=== PATIENT | female | born 1955 | race Caucasian/White ===

== ENCOUNTER 2021-07-16 09:08 | Day surgery (SDC) | payer MEDICARE, BC ==
[~2021-07-16] VITALS: Ht 162.6 cm; Wt 93.2 kg
[2021-07-16 10:07] VITALS: BP 118/69; PULSE 99; TEMP 97.4
[2021-07-16] MEDS ORDERED: ZOFRAN8 MG PO (10:22)
[2021-07-16] MEDS ORDERED: ATIVAN 0.50.5 MG/TAB PO (10:59)
[2021-07-16] MEDS ORDERED: ULTRAM 50MG TAB50 MG PO (11:00)
[2021-07-16] MEDS ORDERED: LIDOCAINE HC20 MG/M2 PO (11:00)
[2021-07-16] MEDS ORDERED: ZOLOFT 50MG50 MG PO (11:00)
[2021-07-16] MEDS ORDERED: SYNTHROID 0.0.025 MG PO (11:00)
[2021-07-16] MEDS ORDERED: ROXICODONE 55 MG/TAB PO (11:01)
[2021-07-16 11:29] VITALS: BP 106/39; PULSE 79; TEMP 97
--- NOTE | 2021-07-16 11:29 | NUR ---
The patient arrived back to [facility] via cart at this time. The patient appears drowsy but arouses easily to her name. Post operative vital signs were started at this time. The patient's dressing to her left neck and upper chest appear clean, dry and intact. Call light is within reach. Will continue to monitor the patient.
[2021-07-16 11:44] VITALS: BP 112/49; PULSE 77
--- NOTE | 2021-07-16 11:44 | NUR ---
The patient appears more alert at at this time and was given some sprite and a warm blanket. The patient's daughter is at her bedside at this time. Vital signs appear stable. Will continue to monitor the patient.
[2021-07-16 11:59] VITALS: BP 110/44; PULSE 77
--- NOTE | 2021-07-16 12:00 | NUR ---
The patient appeared to toleate the sprite well. The patient denies any pain or nausea at this time. The patient's daughter remains at her bedside. Will continue to monitor the patient.
--- NOTE | 2021-07-16 12:15 | NUR ---
The patient and her daughter voice a desire to be discharged home. The patient's IV to left hand was removoed and a pressure dressing was applied the site. The patient's daughter is going to assist her to get dressed.
--- NOTE | 2021-07-16 12:25 | NUR ---
Discharge instructions were reviewed with the patient and her daughter at this time. They both verbalized understanding and have no questions for the nurse at this time. The patient is dressed and ready to be escorted out.
--- NOTE | 2021-07-16 12:35 | NUR ---
The patient was escorted out via wheelchair to a private vehicle by VIKAS Gutierrez. The patient's belongings and discharge paperwork were sent with her. The patient's daughter is present to drive her home.
== END 2021-07-16 12:35 | disposition home or self-care (01) ==
LOC: SDCO 09:08
DX: C34.32 Malignant neoplasm of lower lobe, left bronchus or lung (principal); C78.7 Secondary malignant neoplasm of liver and intrahepatic bile duct; K21.9 Gastro-esophageal reflux disease without esophagitis; Z79.899 Other long term (current) drug therapy; Z79.891 Long term (current) use of opiate analgesic; Z85.3 Personal history of malignant neoplasm of breast; Z87.891 Personal history of nicotine dependence; Z80.0 Family history of malignant neoplasm of digestive organs
CPT/HCPCS: C1788; J0690; J1100; J1644; J2405; J2704; J3010; J7120

== ENCOUNTER 2021-07-19 11:35 | Inpatient (IN) | payer MEDICARE, BC ==
[~2021-07-19] VITALS: Ht 162.6 cm; Wt 98.0 kg
[~2021-07-19 11:35] MED LIST: ATIVAN 0.50.5 MG/TAB PO; LIDOCAINE HC20 MG/M2 PO; ROXICODONE 55 MG/TAB PO; SYNTHROID 0.0.025 MG PO; ULTRAM 50MG TAB50 MG PO; ZOFRAN8 MG PO; ZOLOFT 50MG50 MG PO
[2021-07-19 13:46] LABS: HEMATOCRIT 49.8 % (37.0-47.0); HEMOGLOBIN 16.5 g/dl (12.5-16.0); MEAN CELL VOLUME 89 fl (80.0-100.0); MEAN CORPUSCULAR HEMOGLOBIN 29 pg (27-31); MEAN CORPUSCULAR HGB CONC 33 g/dl (33.0-37.0); RED BLOOD COUNT 5.61 M/mm3 (4.10-5.30); REDCELL DISTRIBUTION WIDTH-CV 22.2 % (11.5-14.5)
[2021-07-19 13:48] LABS: PLATELET COUNT 43 K/mm3 (130-400)
[2021-07-19 14:15] LABS: ALBUMIN 1.9 gm/dL (3.4-4.8); BILIRUBIN,TOTAL 18.1 mg/dL (0.2-1.2); C-REACTIVE PROTEIN 6.39 mg/dL (0.00-0.50); CALCIUM 8.7 mg/dL (8.4-10.2); CREATININE, serum 1.36 mg/dL (0.57-1.11); POTASSIUM 5.7 mmol/L (3.5-4.5); TOTAL PROTEIN 6.8 gm/dL (6.2-8.1)
[2021-07-19 14:22] LABS: TROPONIN-I 0.012 ng/mL (0.00-0.033)
[2021-07-19 14:38] LABS: ANISOCYTOSIS 3+; BAND 3 % (0-10); LYMPHOCYTE 5 % (20.0-51.0); NEUTROPHILS 89 % (42.0-75.2); PLATELET ESTIMATE DECREASED (NORMAL)
[2021-07-19 15:00] LABS: COLLECTION METHOD CLEAN CATCH
[2021-07-19 15:14] LABS: MUCOUS Present (NOT PRESENT); PH 6 (5-8); SQUAMOUS EPITHELIAL None Seen /hpf (0-10); URINE APPEARANCE Hazy (CLEAR/HAZY); URINE BACTERIA Rare /hpf (NONE SEEN); URINE BILIRUBIN Positive (NEGATIVE); URINE BLOOD Negative (NEGATIVE); URINE COLOR Amber (YELLOW); URINE GLUCOSE Negative (NEGATIVE); URINE KETONE Negative (NEGATIVE); URINE LEUKOCYTE ESTERASE Negative (NEGATIVE); URINE NITRATE Negative (NEGATIVE); URINE PROTEIN(semi-quant) Negative (NEGATIVE); URINE RBC 0-2 /hpf (0-2); URINE UROBILINOGEN >=4.0 (NEGATIVE)
[2021-07-19] MEDS ORDERED: REQUIP 1MG T1 MG/TAB PO (17:57)
[2021-07-19] MEDS ORDERED: PRILOTC PO (17:58)
[2021-07-19 18:15] VITALS: BP 126/67; PULSE 103
[2021-07-19 19:19] VITALS: BP 103/81; PULSE 108; TEMP 97.4
--- NOTE | 2021-07-19 20:30 | NUR ---
PT IN BED. DAUGHTER LEFT FOR THE NIGHT. PT REPORTS BURNING AT LEFT UPPER ARM IV SITE, CURRENTLY NO IVF INFUSING PER SITE. HAS GOOD BLOOD RETURN AND FLUSHES WELL. CONNECTED TO IVF AND ANTIBIOTIC, INFUSING WITHOUT PROBLEM. MEDICATED WITH HS MEDS INCLUDING 9MG OF MELATONIN. HAS A LEFT CHEST PORT THAT ISN'T ACCESSED. BRUISING OF LEFT CHEST AND ARMS NOTED. MILD EDEMA TO LOWER LEGS. SKIN JAUNDICE. RT ARM RESTRICTED. DOING B/P'S ON LEFT LEG.
[2021-07-19 21:41] LABS: CALCIUM 8.2 mg/dL (8.4-10.2); CREATININE, serum 1.55 mg/dL (0.57-1.11); POTASSIUM 4.7 mmol/L (3.5-4.5)
--- NOTE | 2021-07-19 22:34 | NUR ---
PT SITTING AT EDGE OF BED, REPORTS NOT SLEEPING AND FEELING ANXIOUS. MEDICATED WITH ATIVAN 0.5MG PO AT THIS TIME.
[2021-07-20 00:03] VITALS: BP 109/63; PULSE 102; TEMP 97.5
[2021-07-20 03:09] VITALS: BP 140/86; PULSE 101; TEMP 97.9
--- NOTE | 2021-07-20 07:00 | NUR ---
Report received from VIKAS Caraballo. Patient is sleeping in bed. Call light and bedside table are within reach. Will continue to montior patient throughout shift.
[2021-07-20 07:06] VITALS: BP 116/48; PULSE 97; TEMP 98.2
[2021-07-20 07:21] LABS: HEMATOCRIT 48.2 % (37.0-47.0); HEMOGLOBIN 16.4 g/dl (12.5-16.0); MEAN CELL VOLUME 88 fl (80.0-100.0); MEAN CORPUSCULAR HEMOGLOBIN 30 pg (27-31); MEAN CORPUSCULAR HGB CONC 34 g/dl (33.0-37.0); MEAN PLATELET VOLUME 12.2 fl (7.4-10.4); PLATELET COUNT 56 K/mm3 (130-400); REDCELL DISTRIBUTION WIDTH-CV 21.9 % (11.5-14.5)
[2021-07-20 07:27] LABS: CALCIUM 8.5 mg/dL (8.4-10.2); CREATININE, serum 1.47 mg/dL (0.57-1.11); POTASSIUM 4.5 mmol/L (3.5-4.5)
[2021-07-20 08:24] LABS: BAND 18 % (0-10); EOSINOPHIL 1 % (0-4); NEUTROPHILS 66 % (42.0-75.2)
[2021-07-20 08:27] LABS: POLYCHROMASIA 1+
[2021-07-20 08:28] LABS: POIKILOCYTOSIS 1+; TARGET CELLS 1+
[2021-07-20 08:31] LABS: ANISOCYTOSIS 2+; LYMPHOCYTE 10 % (20.0-51.0); PLATELET ESTIMATE DECREASED (NORMAL)
--- NOTE | 2021-07-20 09:42 | NUR ---
This nurse spoke with the patient's son and was informed the family wants to speak with community mental health social worker in regard to a pallative care consult but the family want to take patient home. This nurse informed son, Blayne, she would ask social service to come talk to the family because they would be able to answer all of their questions.
--- NOTE | 2021-07-20 09:45 | NUR ---
Report received from VIKAS Horn. Patient is sleeping in bed. Call light and bedside table are within reach. Will continue to monitor patient throughout shift.
--- NOTE | 2021-07-20 10:46 | NUR ---
Call made to the patient's dtr Rashmi, she is calling local hospice agencies to see who would be able to provider services to her mother in [place]. Son Blayne is at bedside and in communication with Rashmi. Plan is for Rashmi to decide on a hospice agency and get back to us so we can help with discharge planning. Rashmi has my number and was encouraged to call with any questions or if she need any assistance with arrangements.
--- NOTE | 2021-07-20 11:58 | NUR ---
First visit from the airline stewardess. No needs right now.
--- NOTE | 2021-07-20 13:59 | NUR ---
This nurse talked to patient's son and he requested oxygen or albuterol for him Mom's SOA and this nurse informed son she could put O2 on his mother, however, to keep in mind she has had cancer of the lungs and she is expected to be SOA. This nurse also spoke with social welfare administrator and informed her patient's son did not think his mom would be able to make it from the car to her house without the use of a WC because it is still 50 feet and it would be hard for her without a WC. pharmacy services representative is going to try to get in contact with hospice to see if they can meet patient and son at their home.
[2021-07-20] MEDS ORDERED: TRANSDERM-0.5 MG/21 TD (14:11)
[2021-07-20] MEDS ORDERED: DULCOLAX S10 MG/SUPP RC (14:11)
[2021-07-20] MEDS ORDERED: ROXICODONE 55 MG/TAB PO (14:12)
[2021-07-20] MEDS ORDERED: ATIVAN 1MG T1 MG/TAB PO (14:12)
[2021-07-20] MEDS ORDERED: FENTANYL 12MCG TD (14:12)
--- NOTE | 2021-07-20 15:52 | NUR ---
[employer] met with patient's son, Blayne and palliative RN, Leticia to discuss discharge planning. Blayne advised the plan is to get patient home on hospice. Blayne advised his sister, Rashmi is working on finding a hospice agency that comes to [place]. IGGY followed up with Rashmi and after speaking with patient's primary care team, she decided on [facility]. IGGY contacted Tomasa with [facility] and faxed referral. Tomasa advised they can accept patient for home hospice today. IGGY collaborated with Rashmi who advised patient's hospital bed should arrive around 1600 and they have prepared the home to have patient. IGGY discussed transportation with Rashmi and Blayne. Blayne advised he will drive patient home by private care. IGGY reviewed this plan with Rashmi who is in agreement. Patient has been able to get up out of bed per nursing staff and Rashmi advised they will have family to assist patient into the home. Rashmi confirmed they have a wheelchair at home for patient. IGGY contacted Tomasa at [facility] and faxed discharge orders. Tomasa requested medications go to [facility] in [place]. IGGY provided this update to Hospitalist. Discharge Plan: Home with hospice today
--- NOTE | 2021-07-20 17:02 | NUR ---
Patient has been discharged home to pallative care. Patient's son helped pack belongings to include cell phone and residential program worker. Discharge paperwork printed and discussed with son. Patient transported via and seatbelted in for ride home with son.
== END 2021-07-20 16:30 | disposition hospice, home (50) | DRG 436 ==
LOC: COL.ER 11:35 → SURG 17:04
PROVIDERS: Nurse Practitioner Primary Care; Physician Assistant; ADMIT Student in an Organized Health Care Education/Training Program
PROC: 05HY33Z Insertion of Infusion Device into Upper Vein, Percutaneous Approach (ICD-10-PCS; principal; 2021-07-19)
DX: C78.7 Secondary malignant neoplasm of liver and intrahepatic bile duct (principal); C34.90 Malignant neoplasm of unspecified part of unspecified bronchus or lung; N17.9 Acute kidney failure, unspecified; E87.2 Acidosis; E22.2 Syndrome of inappropriate secretion of antidiuretic hormone; R65.10 Systemic inflammatory response syndrome (SIRS) of non-infectious origin without acute organ dysfunction; C50.911 Malignant neoplasm of unspecified site of right female breast; M81.0 Age-related osteoporosis without current pathological fracture; Z66 Do not resuscitate; G62.9 Polyneuropathy, unspecified; F32.A Depression, unspecified; F41.9 Anxiety disorder, unspecified; E87.5 Hyperkalemia; D69.59 Other secondary thrombocytopenia; D75.1 Secondary polycythemia; E86.0 Dehydration; Z88.4 Allergy status to anesthetic agent; Z88.0 Allergy status to penicillin; Z87.891 Personal history of nicotine dependence; Z51.5 Encounter for palliative care; Z20.822 Contact with and (suspected) exposure to COVID-19
CPT/HCPCS: 99223-AI; 99233-AI; 99239; C1751; C1892; J0692; J7030